=== PATIENT | female | born 1995 | race Two or more races ===

== ENCOUNTER 2020-12-01 02:40 | Emergency (ER) | payer SELFPAY ==
[~2020-12-01] VITALS: Ht 160 cm; Wt 52.2 kg
--- NOTE | 2020-12-01 03:02 | NUR ---
PT BIBRA C/O ETOH AND NAUSEA. PT AAOX4 BREATHING EVENLY AND UNLABORED. PT ADMITTED TO DRINKING TEQUILA. PT ATTACHED TO MONITOR AND POX. MD AT BEDSIDE FOR EVAL. GIVEN BLANKET AND CALL LIGHT WITHIN REACH.
[2020-12-01] MEDS ORDERED: ONDANSETRON 4 MG TAB.RAPDIS SL ONE (03:30)
[2020-12-01] MEDS ORDERED: ONDANSETRON 4 MG TAB.RAPDIS ONE (03:50)
[2020-12-01 03:52] LABS: BASOPHILS # (AUTO) 0.1 K/uL (0.0-0.2); EOSINOPHILS % (AUTO) 1.8 % (0.0-6.0); HEMATOCRIT 34 % (33-45); HEMOGLOBIN 11.2 g/dL (11.5-14.8); LYMPHOCYTES # (AUTO) 1.7 K/uL (0.8-4.8); LYMPHOCYTES % (AUTO) 22.2 % (20.0-44.0); MEAN CORPUSCULAR HGB CONC 33 g/dl (31.0-36.0); MEAN CORPUSCULAR VOLUME 92 fL (82-100); MONOCYTES # (AUTO) 0.7 K/uL (0.1-1.30); MONOCYTES % (AUTO) 9.1 % (2.0-12.0); NEUTROPHILS # (AUTO) 5.1 K/uL (1.8-8.9); NEUTROPHILS % (AUTO) 65.9 % (43.0-81.0); PLATELET COUNT (AUTO) 411 K/uL (150-450); RED BLOOD CELL COUNT(AUTO) 3.65 MIL/uL (4.0-5.2); WHITE BLOOD COUNT (AUTO) 7.8 K/uL (4.3-11.0)
[2020-12-01 04:00] LABS: CALCIUM, SERUM 8.3 mg/dL (8.5-10.1); CREATININE 0.6 mg/dL (0.6-1.3); POTASSIUM 3.1 mmol/L (3.5-5.1)
--- NOTE | 2020-12-01 04:00 | NUR ---
Patient is resting comfortably in bed with eyes closed. Easily aroused. VSS
[2020-12-01 04:07] LABS: ALBUMIN 3.7 g/dL (3.4-5.0); BILIRUBIN,TOTAL 0.1 mg/dL (0.2-1.0); TOTAL PROTEIN, SERUM 7.1 g/dL (6.4-8.2)
--- NOTE | 2020-12-01 07:05 | NUR ---
gave report to maranda araiza for [facility]
--- NOTE | 2020-12-01 07:33 | NUR ---
The patient sleeping in Er bed #11. Responsive to verbal stimuli. Respiration regular and unlabored. The patient is in no apparent distress. Will continue to monitor the patient.
[2020-12-01 10:23] VITALS: BP 110/71
--- NOTE | 2020-12-01 10:24 | NUR ---
Patient discharged to home in stable condition. Written and verbal after care instructions given. Patient verbalizes understanding of instruction.
== END 2020-12-01 10:24 | disposition home or self-care (01) ==
LOC: ER 02:42
DX: F10.121 Alcohol abuse with intoxication delirium (principal); Y90.8 Blood alcohol level of 240 mg/100 ml or more; F17.210 Nicotine dependence, cigarettes, uncomplicated; Z20.822 Contact with and (suspected) exposure to COVID-19
CPT/HCPCS: 36415; 80048; 80076; 80143; 80320; 84702; 85025; 87426; 99285; C9803; Q0162; G0480